=== PATIENT | male | born 1950 | race Caucasian/White ===

== ENCOUNTER → 2017-04-03 | Outpatient (CLI) | payer MEDICARE ==
[2017-04-03 08:32] LABS: ALANINE AMINOTRANSFERASE 83 U/L (21-72); ALBUMIN 4.1 g/dL (3.5-5.0); ALKALINE PHOSPHATASE 96 U/L (38-126); ASPARTATE AMINO TRANSFERASE 40 U/L (17-59); BILIRUBIN,DIRECT 0.3 mg/dL (0.0-0.4); BILIRUBIN,TOTAL 0.8 mg/dL (0.2-1.3); CHOLESTEROL 175.16 mg/dL (0-200); CREATINE KINASE 54 U/L (55-170); Direct HDL 62 mg/dL (>40); TOTAL PROTEIN 6.2 g/dL (6.3-8.2); TRIGLYCERIDES 152 mg/dL (<150)
[2017-04-03 08:43] LABS: DIRECT LDL 96 mg/dL (<100)
[2017-04-03 08:44] LABS: VLDL CHOLESTEROL 30.4 mg/dL (10-31)
== END ==
LOC: OD 07:22
PROVIDERS: ATTEND Internal Medicine Cardiovascular Disease
DX: E78.00 Pure hypercholesterolemia, unspecified (principal); Z79.899 Other long term (current) drug therapy
CPT/HCPCS: 36415; 80061; 80076; 82550

== ENCOUNTER → 2017-04-26 | Outpatient (CLI) | payer MEDICARE ==
[2017-04-26 15:41] LABS: ALANINE AMINOTRANSFERASE 49 U/L (21-72); ALKALINE PHOSPHATASE 82 U/L (38-126); ASPARTATE AMINO TRANSFERASE 24 U/L (17-59); BILIRUBIN,DIRECT 0.2 mg/dL (0.0-0.4); TOTAL PROTEIN 7.4 g/dL (6.3-8.2)
== END ==
LOC: OD 14:35
PROVIDERS: ATTEND Internal Medicine Cardiovascular Disease
DX: R94.5 Abnormal results of liver function studies (principal)
CPT/HCPCS: 36415; 80076